=== PATIENT | male | born 1970 ===

== ENCOUNTER 2021-05-01 10:53 | Outpatient (CLI) | payer OTHER, SELFPAY ==
--- NOTE | 2021-05-01 10:15 | DI.RAD_ITS ---
Exam(s) XR HIP LT 1V XR HIP RT COMPLETE AP PELVIS EXAM: XR HIP LT 1V CLINICAL HISTORY: left hip pain. TECHNIQUE: 2D digital imaging was performed. COMPARISON: CR XR HIP RT COMPLETE AP PELVIS from 05/01/2021 FINDINGS: BONES: No acute fracture is present. No bony destructive lesion is seen. JOINTS: No dislocation present. The hip joint spaces are well maintained. There is spurring at the acetabula, right greater than left. There is spurring at the margin of the right femoral head. The re is minimal spurring on the left. The SI joints are unremarkable. SOFT TISSUE: Normal. IMPRESSION: Mild degenerative changes of the hips, right greater than left. DATA REPOSITORY: RADIATION DOSE DELIVERED:
== END 2021-05-01 10:54 | disposition home or self-care (01) ==
LOC: DIORS 10:53
PROVIDERS: PCP Nurse Practitioner Family; Referring Provider Nurse Practitioner Family; Visit Provider Student in an Organized Health Care Education/Training Program
DX: M16.0 Bilateral primary osteoarthritis of hip (principal)
CPT/HCPCS: 73501; 73502

== ENCOUNTER 2021-06-25 01:23 | Outpatient (CLI) | payer OTHER, SELFPAY ==
--- NOTE | 2021-06-25 13:45 | DI.RAD_ITS ---
Exam(s) RF JOINT INJECTION FLUORO GUID EXAM: RF JOINT INJECTION FLUORO GUID CLINICAL HISTORY: left hip injection under fluoro M25.552 PAIN LT HIP TECHNIQUE: 2D and realtime digital imaging was performed. CONTRAST MATERIAL: Water soluble contrast was administered. COMPARISON: No exams were available for comparison FINDINGS: Fluoroscopy was provided for Dr. Montemayor during the performance of a left hip injection. Please re josef to the procedure report for complete details. Ka,r=14.7 mGy RADIATION DOSE DELIVERED: Ka,r= mGy
[2021-06-25] MEDS: Omnipaque 300 MG/ML 10 ML BTL IJ (15:41)
[2021-06-25] MEDS: Bupivacaine 0.5% Pres-Free 10 ML VIAL 5 ML IV (15:42)
[2021-06-25] MEDS: methylPREDNISolone ACETATE 80 MG/ML VIAL IM (15:42)
--- NOTE | 2021-06-25 21:13 | OPPNE_ITS ---
Date of service: 06/25/21 Time of Service: 16:13 Procedure Note Date of procedure: 06/25/21 Procedure: Bilateral Hip Injection with Fluoroscopic Guidance Surgeon/Proceduralist/Physician: Braulio Montemayor Procedure Diagnosis: Bilateral Hip Impingement Procedure Indications: Brandon has had persistent pain of both hip and groin. Noninvasive measures have been tried. To serve as both diagnostic and therapeutic, an injection under fluoroscopy was recommended. I had discussed the risks of the procedure and the patient elected to proceed. Procedure Description: Brandon was greeted in the flouroscopy room. The consent was reviewed with the patient and signed. The patient was then placed in the supine position on the fluoroscopy table. The LEFT hip was then prepped with Chloraprep. The anterolateral injection starting point was identiifed by bony landmarks and fluoroscopy. The skin and soft tissue in the tract of the injection was anesthetized with 1% Lidocaine. A spinal needle was then inserted deep into the hip joint at the level of the lateral femoral neck under fluoroscopic guidance. A small amount of Omnipaque s olution was injected to confirm intraarticular placement. Once confirmed, the hip was injected with 5cc of 0.5% Bupivicaine and 80mg of Depo-Medrol. A bandaid was placed on the injection site. Attention was turned to the right hip. The RIGHT hip was then prepped with Chloraprep. The anterolateral injection starting point was identiifed by bony landmarks and fluoroscopy. The skin and soft tissue in the tract of the injection was anesthetized with 1% Lidocaine. A spinal needle was then inserted deep into the hip joint at the level of the lateral femoral neck under fluoroscopic guidance. A small amount of Omnipaque solution was injected to confirm intraarticular placement. Once confirmed, the hip was injected with 5cc of 0.5% Bupivicaine and 80mg of Depo-Medrol. A bandaid was placed on the injection site. The patient tolerated the procedure well and noted improvement in pre-injection pain.
== END 2021-06-25 01:43 ==
PROVIDERS: PCP Nurse Practitioner Family; Visit Provider Student in an Organized Health Care Education/Training Program
DX: M25.852 Other specified joint disorders, left hip; M25.851 Other specified joint disorders, right hip; M25.551 Pain in right hip; M25.552 Pain in left hip; R10.31 Right lower quadrant pain; R10.32 Left lower quadrant pain
CPT/HCPCS: 20610 ×2; 77002; J1040